=== PATIENT | male | born 1950 | race Caucasian/White ===

== ENCOUNTER → 2022-09-24 | Day surgery (SDC) | payer MEDICARE ==
[2022-09-19 14:32] LABS: BASOPHILS % (AUTO) 0.3 % (0-1); EOSINOPHILS # (AUTO) 0.2 X10'3 (0-0.9); EOSINOPHILS % (AUTO) 2.3 % (0-6); HEMATOCRIT 47.9 % (42.0-52.0); LYMPHOCYTES # (AUTO) 2.3 X10'3 (1.1-4.8); LYMPHOCYTES % (AUTO) 26.7 % (21-51); MEAN CORPUSCULAR HEMOGLOBIN 29.2 PG (27.0-31.0); MEAN CORPUSCULAR HGB CONC 33.3 g/dL (33.0-36.5); MEAN CORPUSCULAR VOLUME 87.5 FL (78-98); MEAN PLATELET VOLUME 8.3 FL (7.4-10.4); MONOCYTES % (AUTO) 12.3 % (2-12); NEUTROPHILS % (AUTO) 58.4 % (42-75); PLATELET COUNT 280 X10'3 (140-440); RED BLOOD COUNT 5.47 X10'6 (4.70-6.10); RED CELL DISTRIBUTION WIDTH 14.1 % (11.5-14.5); WHITE BLOOD COUNT 8.5 X10'3 (4.5-11.0)
[2022-09-19 14:36] LABS: APTT 32 SECONDS (22-32)
[2022-09-19 14:43] LABS: ALANINE AMINOTRANSFERASE 36 U/L (12-78); ALBUMIN 4.2 G/DL (3.4-5.0); ALKALINE PHOSPHATASE 75 IU/L (46-116); ANION GAP 8 (8-16); ASPARTATE AMINO TRANSFERASE 23 U/L (10-37); BILIRUBIN,TOTAL 0.5 MG/DL (0.1-1.0); BLOOD UREA NITROGEN 17 MG/DL (7-18); BUN/CREATININE RATIO 17.5 (5.4-32.0); CALCIUM 9.9 MG/DL (8.5-10.1); CHLORIDE 101 MMOL/L (99-107); CREATININE 0.97 MG/DL (0.60-1.10); GLUCOSE 98 MG/DL (70-104); POTASSIUM 4.5 MMOL/L (3.5-5.1); SODIUM 136 MMOL/L (135-145); TOTAL CARBON DIOXIDE 26.6 MMOL/L (24-32); TOTAL PROTEIN 8.4 G/DL (6.4-8.2); eGFR 76 ML/MIN
[2022-09-24] VITALS (12 sets, daily range): BP systolic 100–137; BP diastolic 58–83
[~2022-09-24] VITALS: Ht 175.3 cm; Wt 87.3 kg
[~2022-09-24] MED LIST: ALPR-623 PO; FLO0.4C PO; HYDROcodone/acetaminophen 10/325mg tab PO PRN; HYDROcodone/acetaminophen 5mg/325mg tablet PO PRN; LIDOcaine 1% 30ml preserv. free vial ONE; LORazepam 0.5 MG tablet PO PRN; METO-395 PO; NITR0.4T51 SL; OXAZEpam 15mg capsule PO PRN; diphenhydrAMINE 25mg capsule PO PRN; fentaNYL/PF 50MCG/1 ML 2ML syringe ONE; iohexol 350 MG/ML 50ML vial IV ONE; iohexol 350MG/ML 100ml bottle IV ONE; midazolam 1 mg/ML 2ml injection ONE; nitroGLYCERIN 0.4mg SUBLingual tab SL PRN; normal saline 1,000 ML IV SCH; normal saline 1000ml 1,000 ML IV SCH; ondansetron/PF 4mg/2ml inj IV PRN; proCHLORperazine 10 MG/2 ml inj IV PRN
--- NOTE | 2022-09-24 13:30 | NUR ---
Bedside report received from [facility]. Patient vital signs stable. NSR on operations chief. Right femoral site stable with distal pulse intact. Dressing CDI. Will continue to monitor.
[2022-09-24 15:53] LABS: ABG BASE EXCESS -0.3 mmol/L (-2.0-2.0); ABG HCO3 24.9 mmol/L (22.0-26.0); ABG OXYGEN SATURATION 94.2 % (94-97); ABG PCO2 (T) 42.7 mmHg (35.0-48.0); ABG PO2 (T) 69.7 mmHg (75.0-100.0); ALLEN'S TEST POSITIVE; FCOHb 0.2 % (0.0-3.9); FMetHb 0.4 % (0.0-1.5); FO2Hb 93.6 % (94-97); TOTAL HEMOGLOBIN 16.2 G/dl (14.0-17.9)
== END | disposition home or self-care (01) ==
LOC: SSTAY O 09:16
PROVIDERS: ATTEND Internal Medicine Cardiovascular Disease
DX: R06.02 Shortness of breath (principal); I25.119 Atherosclerotic heart disease of native coronary artery with unspecified angina pectoris; I25.82 Chronic total occlusion of coronary artery; I10 Essential (primary) hypertension; E78.5 Hyperlipidemia, unspecified; I25.2 Old myocardial infarction; N40.1 Benign prostatic hyperplasia with lower urinary tract symptoms; E66.9 Obesity, unspecified; Z68.28 Body mass index [BMI] 28.0-28.9, adult; Z88.8 Allergy status to other drugs, medicaments and biological substances; Z79.899 Other long term (current) drug therapy; Z98.890 Other specified postprocedural states
CPT/HCPCS: 36415; 36600; 71046; 80053; 82803; 83880; 84484; 85018; 85025; 85610; 85730; 93005; 93306; 93458; 93880; 93970; 94010; 99152; C1760; C1769; J1644; J2250; J3010; J3490; J7030; Q0163; Q9967; 99153; A6258